=== PATIENT | male | born 1995 | race Two or more races ===

== ENCOUNTER 2024-01-22 18:14 | Emergency (ER) | payer SELFPAY ==
[~2024-01-22] VITALS: Ht 172.7 cm; Wt 71.2 kg
[2024-01-22] MEDS: diphenhydrAMINE 50 mg/ml inj IM ONE (20:39)
[2024-01-22] MEDS: ketorolac tromethamine 15mg/ml inj. IM ONE (20:40)
[2024-01-22] MEDS: ondansetron 4mg rapidly disintigrating tab PO ONE (20:42)
[2024-01-22] MEDS: ketorolac trometh. 30mg/ml inj. IM ONE (20:43)
[2024-01-22] MEDS: ketorolac trometh inj. 60 MG/2 ML VIAL IM ONE (20:43)
[2024-01-22] MEDS: acetaminophen 325mg tablet PO ONE (21:49)
[2024-01-22 23:06] VITALS: BP 122/57; PULSE 87; RESP 18; TEMP 99.9; O2SAT 97
== END 2024-01-22 23:07 | disposition home or self-care (01) ==
LOC: EDBD 18:15 → ER 18:15
DX: G43.909 Migraine, unspecified, not intractable, without status migrainosus (principal); R11.0 Nausea; Z20.822 Contact with and (suspected) exposure to COVID-19
CPT/HCPCS: 36415; 87502; 87503; 87811; 96372; 99284; J1200; J1885